=== PATIENT | female | born 1985 | race Hispanic/Latino ===

== ENCOUNTER 2017-07-01 13:55 | Outpatient (CLI) | payer BC | END 2017-07-01 13:56 | disposition home or self-care (01) | LOC: BICMAMMO 13:55 | PROVIDERS: ATTEND Family Medicine | DX: N60.11 Diffuse cystic mastopathy of right breast (principal) | CPT/HCPCS: 77066; G0279 ==

== ENCOUNTER 2018-04-04 12:03 | Emergency (ER) | payer BC ==
--- NOTE | 2018-04-04 13:57 | CT ---
CT BRAIN: DATE: 04/04/2018. PROVIDED CLINICAL HISTORY: Headache. FINDINGS: No comparisons. The ventricular system appears normal in size and morphology. There is no evidence for intracranial hemorrhage or mass effect. 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 The extraaxial soft tissues and osse ous structures demonstrate an unremarkable CT appearance. IMPRESSION: No evidence for intracranial hemorrhage or mass effect. POS: [facility]
== END 2018-04-04 13:55 | disposition home or self-care (01) ==
LOC: ERS 12:03
DX: R51 Headache (principal)
CPT/HCPCS: 70450